=== PATIENT | male | born 1990 | race Caucasian/White ===

== ENCOUNTER → 2020-01-04 14:37 | Outpatient (BNVA) | payer OTHER, SELFPAY | PROVIDERS: Family Provider Family Medicine; PCP Family Medicine; Visit Provider Family Medicine | DX: J11.1 Influenza due to unidentified influenza virus with other respiratory manifestations (principal) | CPT/HCPCS: 87804 ==

== ENCOUNTER 2020-01-25 11:40 | Emergency (ER) | payer OTHER, SELFPAY ==
[2020-01-25 11:48] VITALS: BP 148/87; PULSE 88; RESP 16; TEMP 36.6; O2SAT 98; BMI 28.2
== END 2020-01-25 12:06 | disposition left against medical advice (07) ==
LOC: ER 02-01 13:38
PROVIDERS: Emergency Provider Nurse Practitioner Family; Family Provider Family Medicine
DX: Z53.21 Procedure and treatment not carried out due to patient leaving prior to being seen by health care provider (principal)
CPT/HCPCS: 99281; 99282

== ENCOUNTER 2021-07-27 14:10 | Outpatient (CLI) | payer OTHER, SELFPAY ==
--- NOTE | 2021-07-27 14:24 | CT_ITS ---
WS: [id number] CT NECK TECHNIQUE: Contrast-enhanced CT of the neck with coronal and sagittal reformatted images. CLINICAL INFORMATION: PAIN IN THROAT COMPARISON: None. DLP: 885.[address] scans at [facility] use at least one of these dose optimization techniques: automated e xposure control; mA and/or kV adjustment per patient size (includes targeted exams where dose is matc hed to clinical indication); or iterative reconstruction. FINDINGS: Parotid glands are normal. Normal submandibular glands. Prominent palatine tonsils. No evidence of to nsillar abscess or peritonsillar fluid collection. Normal posterior nasopharynx. No evidence of supra glottic or glottic mass. Normal subglottic airway. Enlarged bilateral cervical lymph nodes within bot h cervical chains likely reactive. Thyroid gland. Lung apices are well aerated. Mastoid air cells and paranasal sinuses are well aerated . CT/CT neck w con* [id number] IMPRESSION: 1. Prominent palatine tonsils bilaterally. Recommend correlation for tonsillit is. No evidence of tonsillar abscess or fluid collection. 2. No critical airway stenosis. No evidence of supraglottic or glottic mass. 3. Prominent bilateral cervical lymph nodes likely reactive. 4. No other significant findings.
[2021-07-27] MEDS: iohexol 300 mg/mL 100 mL Btl IV (15:28)
== END 2021-07-27 14:11 | disposition home or self-care (01) ==
PROVIDERS: Visit Provider Specialist
DX: R07.0 Pain in throat (principal)
CPT/HCPCS: 70491; Q9967

== ENCOUNTER 2023-10-10 13:20 | Outpatient (CLI) | payer OTHER, SELFPAY ==
--- NOTE | 2023-10-10 13:30 | US_ITS ---
WS: [id number] ULTRASOUND SOFT TISSUES posterior LEFT back. HISTORY: SKIN NODULE-LUMBAR REGION COMPARISON: None available. TECHNIQUE: 2-D and color Doppler imaging is submitted. Palpable nodule along the LEFT back at the level of the lumbar spine. Patient had difficult time iden tifying the mass on this examination. No soft tissue masses identified. IMPRESSION: No identifiable mass along the posterior LEFT back.
== END 2023-10-10 13:21 | disposition home or self-care (01) ==
PROVIDERS: Visit Provider Nurse Practitioner
DX: R22.9 Localized swelling, mass and lump, unspecified (principal)
CPT/HCPCS: 76882